=== PATIENT | male | born 1955 | race Caucasian/White ===

== ENCOUNTER → 2016-12-12 | Outpatient (CLI) | payer BC, OTHER ==
[~2016-12-12] MED LIST: ASPI325T45 PO; CLB/200 PO; CLC100 PO; CLOP1TAB5 PO; CRESTOR PO; METO-478 PO; [UNRECOGNIZED DRUG - CODE] PO
[2016-12-12 17:01] LABS: ALT/SGPT 42 U/L (12-78); AST/SGOT 29 U/L (15-37); BLOOD UREA NITROGEN 22 mg/dl (7-18); BUN/CREATININE RATIO 18.1 (10-20); CARBON DIOXIDE 30 mmol/L (21-32); CHLORIDE 100 mmol/L (98-107); CHOLESTEROL 123 mg/dl (0-200); GLUCOSE 93 mg/dl (70-99); POTASSIUM 3.8 mmol/L (3.5-5.1); SODIUM 137 mmol/L (136-145)
[2016-12-12 17:12] LABS: ALB/GLOB RATIO 1.3 (0.9-2); ALKALINE PHOSPHATASE 66 U/L (45-117); CHOLESTEROL/HDL RATIO 2.9; HDL CHOLESTEROL 43 mg/dl; LDL CHOLESTEROL CALCULATED 62 mg/dl; TRIGLYCERIDES 88 mg/dl (0-150); VERY LOW DENSITY LIPOPROT CALC 18 mg/dl
== END | disposition home or self-care (01) ==
LOC: C.LABMFLN 08:12
PROVIDERS: ATTEND Internal Medicine
DX: I10 Essential (primary) hypertension (principal); Z12.5 Encounter for screening for malignant neoplasm of prostate; E03.9 Hypothyroidism, unspecified

== ENCOUNTER → 2017-01-23 | Outpatient (CLI) | payer BC | END | disposition home or self-care (01) | LOC: C.LABMFLN 07:46 | PROVIDERS: ATTEND Internal Medicine | DX: E03.9 Hypothyroidism, unspecified (principal); Z11.59 Encounter for screening for other viral diseases ==

== ENCOUNTER → 2017-03-27 | Outpatient (CLI) | payer BC ==
[~2017-03-27] MED LIST changes: -METO-478 PO; +METO1TAB31 PO
== END | disposition home or self-care (01) ==
LOC: C.LABMFLN 07:05
PROVIDERS: ATTEND Internal Medicine
DX: E03.9 Hypothyroidism, unspecified (principal)

== ENCOUNTER → 2017-12-16 | Outpatient (CLI) | payer BC ==
[~2017-12-16] MED LIST changes: +ASPECOTC PO; -ASPI325T45 PO; +METO-478 PO; -METO1TAB31 PO
[2017-12-16 13:48] LABS: ALBUMIN 4.1 gm/dl (3.4-5.0); ALT/SGPT 33 U/L (12-78); AST/SGOT 31 U/L (15-37); BLOOD UREA NITROGEN 22 mg/dl (7-18); CALCIUM 8.9 mg/dl (8.5-10.1); CARBON DIOXIDE 30 mmol/L (21-32); CREATININE 1.18 mg/dl (0.60-1.40); GLUCOSE 103 mg/dl (70-99); POTASSIUM 3.6 mmol/L (3.5-5.1); SODIUM 137 mmol/L (136-145)
[2017-12-16 14:07] LABS: ALKALINE PHOSPHATASE 95 U/L (45-117); CHOLESTEROL 149 mg/dl (0-200); LDL CHOLESTEROL CALCULATED 74 mg/dl; TOTAL PROTEIN 7.7 gm/dl (6.4-8.2)
== END | disposition home or self-care (01) ==
LOC: C.LABMFLN 07:07
PROVIDERS: ATTEND Internal Medicine
DX: E78.5 Hyperlipidemia, unspecified (principal); E03.9 Hypothyroidism, unspecified

== ENCOUNTER → 2017-12-20 | Outpatient (CLI) | payer BC ==
--- NOTE | 2017-12-20 13:10 | DIAGNOSTIC IMAGING REPORT ---
THYROID ULTRASOUND CLINICAL HISTORY: Thyroid nodule. COMPARISON STUDY: None. TECHNIQUE: Sonography of the thyroid gland was performed. FINDINGS: The right thyroid lobe measures 2.8 x 0.9 x 0.8 cm and the left lobe measures 3.3 x 1.2 x 0.9 cm. The gland is small and heterogeneous. No thyroid nodules are identified. IMPRESSION: 1. No thyroid nodules identified. 2. Heterogeneous, small thyroid gland. Electronically signed by: Terence Clark M.D. 12/20/2017 1:09 PM Dictated Date/Time: 12/20/2017 1:08 PM
== END | disposition home or self-care (01) ==
LOC: C.ULTR 12:15
PROVIDERS: ATTEND Internal Medicine
DX: E04.1 Nontoxic single thyroid nodule (principal)